=== PATIENT | male | born 1995 | race Two or more races ===

== ENCOUNTER 2020-01-06 13:06 | Outpatient (CLI) | payer OTHER ==
--- NOTE | 2020-01-06 13:49 | ULT ---
Exam: Bilateral renal ultrasound HISTORY: Increasing urinary frequency COMPARISON: 11/16/2012 FINDINGS: Right kidney: Normal cortical echotexture. No hydronephrosis. Right kidney measurements: 3.6 x 9.4 x 4.5 cm. Left kidney: Normal cortical echotexture. No hydronephrosis Left kidney measurements 3.5 x 9.9 x 3.6 cm. Urinary bladder: Mucosal evaluation is limited due to inadequate distention. Prevoid volume 11.7 mL. Post void volume 1 mm meter. IMPRESSION: No hydronephrosis.
== END 2020-01-06 13:07 | disposition home or self-care (01) ==
LOC: SCSULT 13:06
PROVIDERS: ATTEND Family Medicine
DX: R35.0 Frequency of micturition (principal)
CPT/HCPCS: 76770